=== PATIENT | female | born 2000 | race Caucasian/White ===

== ENCOUNTER 2021-01-21 19:05 | Emergency (ER) | payer BC ==
[~2021-01-21] VITALS: Ht 157.5 cm; Wt 53.5 kg
[2021-01-21 19:11] VITALS: BP 122/78
--- NOTE | 2021-01-21 19:25 | ED Lower Extremity ---
General Chief Complaint: Lower Extremity Stated Complaint: LEFT BIG TOE INFECTED Nursing Triage Note: left 1st toe redness/pain since . denies injury. reports worse tonight. Source: patient Exam Limitations: no limitations (CARMEN ROJAS APRN) History of Present Illness Date Seen by Provider: Jan 21, 2021 Time Seen by Provider: 19:12 Initial Comments This is a well-appearing 20-year-old female who presented to the ER with complaints of left big toe infection. States that she pulled a hangnail a couple days ago. Over the past 3 days she has been having increasing pain and redness to the area. States pain is worse this evening. Denies any trauma or injury. No fever, chills, cough, shortness of breath, nausea, vomiting, abdominal pain. Had pedicure apx 2 weeks ago. (CARMEN ROJAS APRN) Allergies and Home Medications Allergies Coded Allergies: No Known Drug Allergies (Unverified , 01/21/21) Patient Home Medication List Home Medication List Reviewed: Yes (CARMEN ROJAS APRN) Cephalexin (Cephalexin) 500 Mg Tablet, 500 MG PO TID Prescribed by: CARMEN ROJAS on 01/21/212000 Cyclobenzaprine HCl (Cyclobenzaprine HCl) 10 Mg Tablet, (Reported) Entered as Reported by: MAGNOLIA PHAN on 01/21/211925 Last Action: New Order Ethinyl Estradiol/Drospirenone (Drospirenone-Ee 3-0.02 mg Tab) 1 Each Tablet, (Reported) Entered as Reported by: MAGNOLIA PHAN on 01/21/211925 Last Action: New Order Meloxicam (Meloxicam) 7.5 Mg Tablet, (Reported) Entered as Reported by: MAGNOLIA PHAN on 01/21/211925 Last Action: New Order Review of Systems Constitutional: see HPI EENTM: no symptoms reported Respiratory: no symptoms reported Cardiovascular: no symptoms reported Gastrointestinal: no symptoms reported Genitourinary: no symptoms reported Musculoskeletal: no symptoms reported Skin: see HPI Psychiatric/Neurological: No Symptoms Reported (CARMEN ROJAS APRN) Past Hhzyiie-Ubsolh-Hdcosj Hx Patient Social History Tobacco Use?: No Use of E-Cig and/or Vaping dev: No Substance use?: No Alcohol Use?: Yes Alcohol Frequency: Once in a while Pt feels they are or have been: No (CARMEN ROJAS ADVANCED PRACTICE PSYCHIATRIC NURSE) Immunizations Up To Date First/Initial COVID19 Vaccinat: 11/30 Second COVID19 Vaccination José Luis: 12/31 COVID19 Vaccine Anime Designer: leonarda (CARMEN ROJAS ADVANCED PRACTICE PSYCHIATRIC NURSE) Past Medical History Last Menstrual Period: Jan 13, 2021 (CARMEN ROJAS ADVANCED PRACTICE PSYCHIATRIC NURSE) Physical Exam Vital Signs Vital Signs - First Documented 01/21/21 19:11 Temp 37.2 Pulse 105 Resp 18 B/P (MAP) 122/78 (93) Pulse Ox 98 O2 Delivery Room Air (NINO KELLY MD) Vital Signs Capillary Refill : Less Than 3 Seconds (CARMEN ROJAS ADVANCED PRACTICE PSYCHIATRIC NURSE) Height, Weight, BMI Height: '" Weight: lbs. oz. kg; 21.00 BMI Method: General Appearance: WD/WN, no apparent distress HEENT: PERRL/EOMI, normal ENT inspection Neck: full range of motion, normal inspection Cardiovascular: regular rate, rhythm, no murmur Respiratory: lungs clear, normal breath sounds, no respiratory distress Feet: right foot non-tender, right foot normal inspection, right foot normal range of motion, right foot no evidence of injury, right foot other (Left great toe: lateral swelling and erythema. Erythema and blister to cuticule. Full ROM. ) Neurologic/Tendon: normal sensation, normal motor functions, normal tendon functions Neurologic/Psychiatric: alert, normal mood/affect, oriented x 3 Skin: normal color, warm/dry (CARMEN ROJAS ADVANCED PRACTICE PSYCHIATRIC NURSE) Procedures/Interventions I&D : Blade Size: 11 I & D Procedure: betadine prep Progress Cleansed area with Betadine prep. Performed digital block to left great toe with 2.5cc Lidocaine 1%. Tolerated well. #11 scalpel placed on top of the nail with the point of the blade directed toward the center of the abscess. Moderate amount of sanguineous drainage. Cleansed with betadine. Applied Bactroban, covered with 4x4, Kerlix, and tape. Tolerated procedure well. (CARMEN ROJAS ADVANCED PRACTICE PSYCHIATRIC NURSE) Progress/Results/Core Measures Results/Orders Medications Given in ED Current Medications Medications Dose Ordered Sig/Roseanna Route Start Time Stop Time Status Last Admin Dose Admin Ceftriaxone Sodium 1,000 mg ONCE ONCE IM 01/21/21 20:00 01/21/21 20:01 DC 01/21/21 19:57 1,000 MG Lidocaine HCl 2.1 ml ONCE ONCE INJ 01/21/21 20:00 01/21/21 20:01 DC 01/21/21 19:57 2.1 ML Lidocaine HCl 20 ml ONCE ONCE INJ 01/21/21 19:30 01/21/21 19:31 DC 01/21/21 19:34 20 ML (NINO KELLY MD) Vital Signs/I&O 01/21/21 19:11 Temp 37.2 Pulse 105 Resp 18 B/P (MAP) 122/78 (93) Pulse Ox 98 O2 Delivery Room Air (NINO KELLY MD) Blood Pressure Mean: 93 Departure Impression Primary Impression: Paronychia of great toe of left foot Disposition: 01 HOME, SELF-CARE Condition: Improved Departure-Patient Inst. Decision time for Depature: 19:58 (CARMEN ROJAS ADVANCED PRACTICE PSYCHIATRIC NURSE) [place]: [facility] [place] Primary Care Physician Patient Instructions: Paronychia ED Add. Discharge Instructions: Plan: 1. Mix 2 spoons of unsalted Epsom salts in half a bucket of water and soak the infected area for 15-20 minutes. Pat dry. Cover with Mupirocin ointment 2-3x per day. 2. Keep area covered. Elevate your foot for the next 48-72 hours as much as possible. 3. Take Keflex as directed and complete full course even if you begin to feel better. 4. May take Tylenol or Ibuprofen as needed for pain. You can take Ibuprofen 600mg every 6 hours as needed. 5. Follow up wit Podiatry if your symptoms worsen despite antibiotic therapy. 6. Return for any new, concerning, or worsening symptoms. All discharge instructions reviewed with patient and/or family. Voiced understanding. Scripts Cephalexin (Cephalexin) 500 Mg Tablet 500 MG PO TID for 5 Days, #15 TAB 0 Refills Prov: CARMEN ROJAS APRN 01/21/21 ATTENDING PHYSICIAN NOTE: I was physically present as attending physician in the emergency department during the care of this patient, but I was not directly involved in the decision making or delivery of care for this patient. (NINO KELLY MD) CARMEN ROJAS APRN Jan 21, 2021 19:25 NINO KELLY MD Jan 21, 2021 22:12
[2021-01-21] MEDS ORDERED: MELO7.5T46 (19:26)
[2021-01-21] MEDS ORDERED: ETHI1TAB31 (19:26)
[2021-01-21] MEDS ORDERED: CYCL10TA9 (19:26)
[2021-01-21] MEDS ORDERED: LIDOCAINE 1% INJ 20 ML 20 ML VIAL INJ ONE ×2 (19:30→20:00)
[2021-01-21] MEDS ORDERED: MUPIROCIN 2% OINT 22 GM (BACTROBAN) TUBE ONE (19:52)
[2021-01-21] MEDS ORDERED: cefTRIAXone 1,000 MG VIAL IM ONE (20:00)
[2021-01-21] MEDS ORDERED: CEPH500T PO (20:01)
[2021-01-21] MEDS ORDERED: MUPIROCIN 2% OINT 22 GM (BACTROBAN) TUBE TOP SCH (21:00)
== END 2021-01-21 20:05 | disposition home or self-care (01) ==
LOC: EDUNIT# 19:05 → ER 19:09
DX: L03.032 Cellulitis of left toe (principal)
CPT/HCPCS: 10160